=== PATIENT | female | born 1955 | race Caucasian/White ===

== ENCOUNTER → 2020-12-15 | Outpatient (CLI) | payer MEDICARE, OTHER ==
[2020-12-15 10:06] LABS: HEMOGLOBIN 13.9 gm/dl (12.3-15.3); RED BLOOD COUNT 5.23 M/UL (4.00-5.10); WHITE BLOOD COUNT 8.7 K/UL (4.5-11.0)
[2020-12-15 10:29] LABS: BUN/CREATININE RATIO 20 (0-10)
[2020-12-16 11:15] LABS: CREATININE, URINE 115.2 mg/dL (Not Estab.)
[2020-12-17 11:15] LABS: CHOLESTEROL, TOTAL 133 mg/dL (100-199); HDL-C 36 mg/dL (>39); HDL-P (TOTAL) 29.1 umol/L (>=30.5); LARGE HDL-P 3.2 umol/L (>=4.8); LARGE VLDL-P 4.1 nmol/L (<=2.7); LDL-C 76 mg/dL (0-99); LDL-P 1228 nmol/L (<1000); LP-IR SCORE 66 (<=45); SMALL LDL-P 784 nmol/L (<=527); TRIGLYCERIDES 117 mg/dL (0-149); VLDL SIZE 54.5 nm (<=46.6)
== END ==
LOC: LAB 09:22
PROVIDERS: Emergency Medicine
DX: K52.89 Other specified noninfective gastroenteritis and colitis (principal); R73.09 Other abnormal glucose; I10 Essential (primary) hypertension; M79.7 Fibromyalgia; E11.65 Type 2 diabetes mellitus with hyperglycemia; R53.83 Other fatigue; E78.2 Mixed hyperlipidemia
CPT/HCPCS: 36415; 80053; 80061; 82043; 82570; 83036; 83704; 84443; 84550; 85025

== ENCOUNTER → 2021-10-12 | Outpatient (CLI) | payer MEDICARE, OTHER ==
[2021-10-12 09:57] LABS: HEMOGLOBIN 13.8 gm/dl (12.3-15.3); RED BLOOD COUNT 5.35 M/UL (4.00-5.10)
[2021-10-12 10:57] LABS: BUN/CREATININE RATIO 15 (0-10)
== END ==
LOC: LAB 09:24
PROVIDERS: Emergency Medicine
DX: E11.65 Type 2 diabetes mellitus with hyperglycemia (principal); I10 Essential (primary) hypertension
CPT/HCPCS: 36415; 80053; 83036; 85025

== ENCOUNTER → 2021-12-05 | Outpatient (CLI) | payer OTHER | END | disposition home or self-care (01) | LOC: RAD 07:53 | DX: M54.16 Radiculopathy, lumbar region (principal) | CPT/HCPCS: 72132; Q9966 ==

== ENCOUNTER 2022-03-28 15:29 | Emergency (ER) | payer OTHER ==
[2022-03-28 17:56] LABS: HEMOGLOBIN 13.9 gm/dl (12.3-15.3); RED BLOOD COUNT 5.14 M/UL (4.00-5.10); WHITE BLOOD COUNT 13.6 K/UL (4.5-11.0)
[2022-03-28 18:25] LABS: BUN/CREATININE RATIO 13 (0-10)
== END 2022-03-28 18:05 | disposition left against medical advice (07) ==
LOC: ER1 15:29
PROVIDERS: Physician Assistant
DX: R31.9 Hematuria, unspecified (principal); M25.561 Pain in right knee; F17.200 Nicotine dependence, unspecified, uncomplicated; E11.9 Type 2 diabetes mellitus without complications
CPT/HCPCS: 73564; 80053; 81001; 85025; 99283